=== PATIENT | male | born 1990 | race Asian ===

== ENCOUNTER 2018-07-08 09:26 | Emergency (ER) | payer OTHER ==
[~2018-07-08] VITALS: Ht 177.8 cm; Wt 111.1 kg
--- NOTE | ~2018-07-08 | EKG ---
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
--- NOTE | ~2018-07-08 | EKG ---
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
[2018-07-08 10:23] LABS: ABSOLUTE NEUTROPHILS 5.5 thou/uL (1.4-8.2); BASOPHILS 0.8 % (0.0-2.0); EOSINOPHILS 0.4 % (0.0-3.0); HEMATOCRIT 45.1 % (42.0-52.0); HEMOGLOBIN 15.1 gm/dL (14.0-18.0); LYMPHOCYTES 19.7 % (24.0-44.0); MCH 27.9 pg (26.0-34.0); MCHC 33.5 g/dL (28.0-37.0); MCV 83.3 fL (80.0-100.0); MONOCYTES 5.3 % (1.0-8.0); PLATELET COUNT 257 thou/uL (150-400); POLYS 73.8 % (36.0-66.0); RBC 5.41 mil/uL (4.50-6.00); WBC 7.5 thou/uL (4.0-11.0)
[2018-07-08 10:31] LABS: CALCIUM 9.6 mg/dL (8.5-10.1); POTASSIUM 4.3 mmol/L (3.5-5.1)
[2018-07-08 10:37] LABS: ALBUMIN 4.1 g/dL (3.4-5.0); TOTAL PROTEIN 8.5 g/dL (6.4-8.2)
[2018-07-08 10:37] LABS: URINE BILIRUBIN NEGATIVE (Negative); URINE BLOOD 1+ (Negative); URINE CLARITY CLEAR; URINE COLOR YELLOW; URINE GLUCOSE-RANDOM* NEGATIVE (Negative); URINE KETONES NEGATIVE (Negative); URINE LEUKOCYTES NEGATIVE (Negative); URINE NITRITE NEGATIVE (Negative); URINE PROTEIN (DIPSTICK) NEGATIVE (Negative); URINE SPECIFIC GRAVITY <= 1.005 (1.005-1.035); URINE UROBILINOGEN 0.2 E.U./dl (0.2-1.0)
[2018-07-08 10:43] LABS: AMP/METHAMP Negative (Negative); BARBITURATES Negative (Negative); BENZODIAZEPINES Negative (Negative); COCAINE Negative (Negative); METHADONE Negative (Negative); OPIATES Negative (Negative); PCP Negative (Negative)
[2018-07-08 11:19] LABS: BACTERIA None Seen /HPF (None Seen); CASTS None Seen /LPF (None Seen); CRYSTALS None Seen /LPF (None Seen); SQUAMOUS 0-3 Few /LPF (0-3); URINE RBC 0-2 Rare /HPF (0-2); URINE WBC None Seen /HPF (0-5)
[2018-07-08 12:46] VITALS: BP 144/95
== END 2018-07-08 12:47 | disposition home or self-care (01) ==
LOC: ER 09:26
PROVIDERS: Physician Assistant
DX: R42 Dizziness and giddiness (principal); E86.0 Dehydration; R00.0 Tachycardia, unspecified